=== PATIENT | female | born 1935 | race Caucasian/White ===

== ENCOUNTER 2016-11-13 22:18 | Observation (INO) | payer MEDICARE ==
[~2016-11-13] VITALS: Ht 162.6 cm; Wt 99.5 kg
--- NOTE | ~2016-11-13 | ECHO ---
Transthoracic Echocardiography Report (TTE) Demographics Patient Name JACKSON MCKEON Date of Study 11/14/2016 L Patient Number [id number] Visit Number [id number] Date of 1935 Room Number [id number] Gender Female Number Age 81 year(s) Referring Cherelle Lamas MD Furrier Shop Supervisor Jon Fletcher [facility], Physician RVT Physician Interpreting Cyndi Richardson MD Auto Wash Buffer Physician Supervising Ordering [facility] [place] GONSALVES/MLP Physician Nurse Stress [employer] Operator Conclusions Contractility Score Summary Normal Left Ventricular contractility was noted. Summary The estimated left ventricular ejection fraction is 60%. Mild concentric left ventricular hypertrophy. Diastolic assessment reveals Grade I diastolic dysfunction. The left atrium is mildly dilated. Procedure Type of Study TTE procedure:2D Echocardiogram. Procedure Date Date: 11/14/2016 Start: 03:10 PM Study Location: Inpatient Portable Technical Quality: Fair Indications:Syncopal Episode. Appropriate Use Criteria: 9 Patient Status: Routine BP: 146/73 mmHg M-Mode/2D Measurements LV Diastolic Dimension: 3.27 cm LV Systolic Dimension: 2.5 cm LV Septum Diastolic: 1.12 cm LV PW Diastolic: 1.1 cm LA Dimension: 3.2 cm RV Diastolic Dimension: 3.26 cm LA volume: 53 ml LVOT: 2.1 cm RV Base: 3 cm LVOT VTI: 21.7 cm RV Mid: 2.54 cm LV Stroke volume: 75.12 ml Doppler Measurements AV Peak Velocity: 1.17 m/s MV Peak E-Wave: 0.48 m/s AV Peak Gradient: 5.48 mmHg MV Peak A-Wave: 1.04 m/s AV Mean Gradient: 4 mmHg MV E/A Ratio: 0.47 LVOT Peak Velocity: 0.99 m/s MV P1/2t: 105 msec TR Gradient:8.07 mmHg Estimated RAP:8 mmHg Estimated PASP: 16.07 mmHg Estimated RVSP: 16 mmHg A' Septal Velocity: 0.1 m/s E' Septal Velocity: 0.06 m/s A' Lateral Velocity: 0.16 m/s E' Lateral Velocity: 0.06 m/s Findings Left Ventricle Mild concentric left ventricular hypertrophy. Diastolic assessment reveals Grade I diastolic dysfunction. Right Ventricle Normal right ventricle structure and function. Left Atrium Normal left atrial size. Right Atrium Normal right atrial size. Mitral Valve Normal mitral valve structure and function. Aortic Valve Normal aortic valve structure and function. Tricuspid Valve Trivial tricuspid regurgitation by color Doppler. Pulmonic Valve Pulmonic valve is not well seen. Pericardial Effusion No evidence of pericardial effusion. Miscellaneous Visualized portions of the aortic root and ascending aorta appear normal in size. Suboptimal subcostal window to evaluate the IVC and interatrial septum. Pleural Effusion No evidence of pleural effusion. Contractility Score LV regional wall motion:(0-Non visualized 1-Normal 2-Hypokinesis 3-Akinesis 4-Dyskinesis 5-Aneurysm) Signature dtt: Dylan Hanna (cardio) dtd: 11/14/16 1510 Physician Self Edit
--- NOTE | ~2016-11-13 | HP ---
PATIENT'S NAME: JACKSON BRIGGS [facility] AGE: 81 Y [address] ROOM: [place] [address] LOCATION: GICU ADMIT DATE: 11/13/2016 History & Physical DISCHARGE DATE: FAMILY PHYSICIAN: PHYSICIAN, UNKNOWN ATTENDING PHYSICIAN: Sosa Villarreal DATE OF SERVICE: 11/14/2016 REFERRED BY: Shan KENT in [place]. REASON FOR REFERRAL: Intracranial hemorrhage. PATIENT IDENTIFICATION: Jackson Briggs is an 81-year-old female. PRESENTING COMPLAINT: Fall. HISTORY OF PRESENT ILLNESS: The patient was going up some steps and fell backward hitting her head. She does not know what caused her to fall, the last thing she remembers is holding onto the banister starting to climb the stairs. states that the patient had been with him shortly before the fall and had stood up from sitting after a long period of time. When she stood up, she felt a little unsteady. The patient thinks she may have passed out or might have missed a step and that was why she fell. Her responded promptly, but did not witness the fall. states the patient was not unconscious and there was no seizure activity. As mentioned earlier, the patient had had some dizziness throughout the day with position change. The patient was taken to the ER in [place] and had a head CT scan done. The CT scan showed a small area of hemorrhage in the left frontal area. The patient was therefore transferred to [facility] for evaluation and treatment. At this time, the patient denies any headache, she did have some headache in [place]. The site of her bruise on the back of the head is smaller now. PAST MEDICAL HISTORY: Significant for hypertension, hyperlipidemia, depression, breast cancer. PREVIOUS SURGERIES: Cataract surgery, cholecystectomy, hysterectomy, and endovascular coiling of right MCA aneurysm. SOCIAL HISTORY: PATIENT'S NAME: JACKSON BRIGGS [facility] AGE: 81 Y [address] ROOM: [place] [address] LOCATION: GICU ADMIT DATE: 11/13/2016 History & Physical DISCHARGE DATE: FAMILY PHYSICIAN: PHYSICIAN, UNKNOWN ATTENDING PHYSICIAN: Sosa Villarreal The patient lives with her spouse in a house. She is a nonsmoker. REVIEW OF SYSTEMS: A 10-point review of systems was carried out. The only abnormal finding was as described in the history of present illness. PHYSICAL EXAMINATION: GENERAL: The patient is a healthy-looking female who was alert and cooperative through the examination. VITAL SIGNS: Blood pressure 148/74, pulse rate 78. NEUROLOGIC: Speech is clear. Cranial Nerves: The patient has some reduction in upward gaze on the right side, this is from previous aneurysm coiling. Motor Examination: The patient has no pronator drift. She has normal strength in all her extremities. Gait: Not tested. Head: There is a bruise on the left side of the back of the patient's head. CARDIOVASCULAR: Heart sounds are present. RESPIRATORY: The patient is not short of breath at bedside. EXTREMITIES: No cyanosis or clubbing. SKIN: The patient has an abrasion to the occipital area as mentioned earlier. EYES AND EARS: No evidence of trauma. REVIEW OF IMAGING STUDIES: The patient has had a head CT scan. The head CT scan shows a bruise in the left occipital area in the scalp. Intracranially, there is a tiny speck of possible hematoma in the left frontal region. Other x-rays: A left scapular x-ray shows a nondisplaced fracture involving the inferior margin of the scapula. A CT of the cervical spine: No acute fracture or dislocation. IMPRESSION: An 81-year-old female with small intracerebral hemorrhage secondary to fall. MEDICAL DECISION MAKING: The patient is being admitted for observation. The hospitalist will be contacted in the morning to assist with investigations for syncope. At this point, there is no indication for neurosurgical intervention. A repeat CT scan may be done if there is decline in the patient's level of consciousness. MD VERO SHELTON/anant PATIENT'S NAME: JACKSON BRIGGS [facility] AGE: 81 Y [address] ROOM: [id number] [address] LOCATION: [facility] ADMIT DATE: 11/13/2016 History & Physical DISCHARGE DATE: FAMILY PHYSICIAN: PHYSICIAN, DOV ATTENDING PHYSICIAN: Sosa Villarreal /[id number] D: T: [id number] HISTORY & PHYSICAL
--- NOTE | ~2016-11-13 | CON ---
PATIENT'S NAME: JACKSON MCKEON [facility] AGE: 81 Y [address] ROOM: [place] [address] LOCATION: GICU ADMIT DATE: 11/13/2016 Consultation DISCHARGE DATE: FAMILY PHYSICIAN: Jarocho Sharma MD ATTENDING PHYSICIAN: Sosa Villarreal DATE OF CONSULTATION: 11/14/2016 REFERRING PHYSICIAN: DUC WEEMS MD CONSULTATION NOTE CHIEF COMPLAINT/REASON FOR CONSULTATION: Syncope, fall, and intracranial hemorrhage. HISTORY OF PRESENT ILLNESS: This is an 81-year-old, pleasant female with a history of hypertension, hyperlipidemia, and transferred from [facility], after she had sustained a fall at home and was noted to have a small intraparenchymal contusion and hemorrhage. The patient was subsequently transferred here under Dr. Villarreal's care for observation. The patient reports to me that she had been sitting outside in her backyard for an extended period of time yesterday afternoon. Then as she got up and attempted to get back in the house which requires her to go up three steps and usp in between, she felt a little dizzy and fell, and sustained a head injury. Does not quite report that she remembers falling, but she does note feeling a little dizzy as she got up from her seated position. Denies any chest pain, palpitations, or shortness of breath either prior to or following the episode. Denies any seizure-like activity including urinary or bowel incontinence. There are no clear signs of trauma on her hands to suggest her trying to break her fall except a mild abrasion on her right wrist. The patient otherwise denies any unilateral weakness, numbness, or tingling of her extremities. Denies any recent illness including no nausea, vomiting, diarrhea, or constipation. Denies any recent decrease in appetite and had been eating and drinking well. PAST MEDICAL HISTORY: 1. Hypertension. 2. Hyperlipidemia. SOCIAL HISTORY: Denies any use of alcohol, cigarettes, or drugs. FAMILY HISTORY: Her father of a stroke and complications from that, and mother had colon cancer. PATIENT'S NAME: JACKSON MCKEON [facility] AGE: 81 Y [address] ROOM: [place] [address] LOCATION: [facility] ADMIT DATE: 11/13/2016 Consultation DISCHARGE DATE: FAMILY PHYSICIAN: Jarocho Sharma MD ATTENDING PHYSICIAN: Sosa Villarreal REVIEW OF SYSTEMS: All systems have been reviewed and were all negative except as described in the HPI. PHYSICAL EXAMINATION: VITAL SIGNS: Blood pressure 141/76, pulse 68, respiratory rate 18, temperature 97.9, and saturating 90% on room air. GENERAL: The patient is awake, alert, and oriented x3. In no acute distress. HEENT: The patient has moist mucous membranes. No scleral icterus. Conjunctival pallor noted. SKIN: Without rash or lesions. She does have about a 2 cm in diameter contusion on the left side on the back of her head. HEART: S1 and S2. Regular rate and rhythm. No murmurs appreciated. CHEST: Clear to auscultation bilaterally. ABDOMEN: Soft, nontender, and nondistended. Positive bowel sounds. MUSCULOSKELETAL: No joint tenderness, swelling, or erythema noted. NEUROLOGIC: Can move all 4 extremities, but unilateral weakness noted. ASSESSMENT AND PLAN: 1. Syncope rule out cardiac cause. We will get an echocardiogram and repeat 12-lead EKG. Of note, there is a report of a left bundle branch block from EKG done at [facility] and I am not sure if this is new or old. She does, however, does not report any chest symptoms. We will repeat an EKG anyway and re-evaluate. Her orthostatics are negative. We will also continue to monitor on telemetry for any arrhythmias. 2. Intracranial hemorrhage. This is relating to her fall with left frontal cortical hemorrhage noted on CT. Her neurological exam is nonfocal, and she is being observed for that, and Dr. Villarreal is closely following. 3. Hypertension. We will continue her home medications. 4. Hyperlipidemia. We will continue her home statin therapy as well. 5. Deep venous thrombosis prophylaxis. We will use SCDs and ambulate. MD MARINA CONTE/anant /[id number] d: 11/14/16 1524 t: 12/01/16 1439, CONSULTATION REPORT
[2016-11-14] MEDS ORDERED: LIPITOR20 M1 PO (00:52)
[2016-11-14] MEDS ORDERED: ASPIRIN325 MG PO (00:52)
[2016-11-14] MEDS ORDERED: HYDRODIURIL25 MG PO (00:55)
[2016-11-14] MEDS ORDERED: PROTONIX40 MG PO (00:55)
[2016-11-14] MEDS ORDERED: CALCIUM CARBON600 MG PO ×2 (00:58→01:00)
[2016-11-14] MEDS ORDERED: THERA-VITE W/ B1 TAB PO (01:00)
[2016-11-14] MEDS ORDERED: FIBERCON1 TAB PO (01:00)
[2016-11-14] MEDS ORDERED: PHILLIPS' COLO1 EACH PO (01:01)
[2016-11-14] MEDS ORDERED: AZO PO (01:03)
--- NOTE | 2016-11-14 01:34 | NUR ---
PATIENT ARRIVED BY AMBULANCE FROM [place] AROUND 2330. PATIENT GOT UP FROM [facility] AND WALKED TO BATHROOM THEN WALKED TO BED WITH 1PA. AT BEDSIDE. ALLERGIES TO PENICILLIN. 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 HYSTERECTOMY, APPY, GALBLADDER REMOVED. BLOOD CLOT ON LIVER REMOVED. HTN, HYPERLIPIDEMA. PLEASE REFER TO DATABASE#1 FOR MORE EXTENSIVE HISTORY. PATIENT WAS WALKING UP STAIRS AND FELL. SHE THINKS SHE "PASSED OUT WHILE WALKING" CAUSING THE FALL. PATIENT WAS TAKEN TO THE ER IN [place] AND HAD A CT DONE AND WAS SENT HERE.
--- NOTE | 2016-11-14 04:32 | NUR ---
Significant Event: Patient is A&Ox3, VSS on 1L O2. Bump to back of head with small amount of bloody drainage. Patient denies pain, but states she is "stiff from the fall". NIHSS=0. Moves all exremities equally. Patient states she does have some umbness above her right eye from past annurysm. at bedside and helpful with cares. Rested well between assessments/ Follow up: hospitalists consult in AM.
--- NOTE | 2016-11-14 12:00 | NUR ---
Introduced self and role of care management to patient. She lives [facility] with her . She is observation status and did talk with her about this. She plans home when ready for discharge. Will follow.
--- NOTE | 2016-11-14 16:34 | NUR ---
Significant Event: Patient alert and oriented x3. Chronic numbness reported above R) eye from past aneurysm. Right eye also does not move upwards due to past aneurysm. R) pupil 4mm, sluggish. L) pupil, 2 mm brisk. Grasps moderate and equal bilaterally. Denies any new numbness/tingling. VSS, on room air. Voids per bathroom, denies nausea. Goose egg to L) posterior head, open to air. Redness to groin noted. Does have L) scapula fracture from fall. Reports neck pain also, CT of neck in [place] was negative. Tylenol given for pain with relief noted. IV to R) hand, saline locked. at bedside, is very attentive to patient's needs. Follow up: VS/neuros q 4 hours. Up with SBA. Regular diet. Home tomorrow?
--- NOTE | 2016-11-15 04:45 | NUR ---
Significant Event: Pt is alert and orineted x3. R) pupil is 4mm and slugish, and does not have full range of motion in this eye. L) pupil is 3 and brisk. Pt denies any numbness or tingling. On 1L of O2 over night. Ambulates with a 1 assist. Up to the toilet to void. No BM this shift. PIV in place. Tylenol given x1 for pain this shift. Follow up: Continue to monitor
--- NOTE | 2016-11-15 14:23 | NUR ---
Significant Event: PT A&O x3. VSS, on room air. Denies pain. No dizziness, SOB or N/T. PT ambulate in [place] x2. Dismissal instructions given to PT/spouse voiced understanding. IV dc'd. PT wheeled to front lobby and dismissed to home by nurse. Follow up:
== END 2016-11-15 13:20 | disposition disaster alternative care site (69) ==
LOC: GICU 23:28
PROVIDERS: ADMIT Neurological Surgery
DX: S06.300A Unspecified focal traumatic brain injury without loss of consciousness, initial encounter (principal); S00.01XA Abrasion of scalp, initial encounter; S42.102A Fracture of unspecified part of scapula, left shoulder, initial encounter for closed fracture; I10 Essential (primary) hypertension; E78.5 Hyperlipidemia, unspecified; F32.9 Major depressive disorder, single episode, unspecified; Z85.3 Personal history of malignant neoplasm of breast; Z98.49 Cataract extraction status, unspecified eye; Z90.49 Acquired absence of other specified parts of digestive tract; Z90.710 Acquired absence of both cervix and uterus; Z98.890 Other specified postprocedural states; W10.9XXA Fall (on) (from) unspecified stairs and steps, initial encounter
CPT/HCPCS: G0378; G8978; G8979; G8980; G8987; G8988; G8989